=== PATIENT | male | born 1975 | race Two or more races ===

== ENCOUNTER 2017-01-10 13:41 | Emergency (ER) | payer SELFPAY ==
[2017-01-10 13:50] VITALS: BMI 27.8
--- NOTE | 2017-01-10 13:58 | PDOC ---
History of Present Illness - General Chief Complaint: Chest Pain Stated Complaint: CHEST PAIN, LT SIDE NUMBNESS Time Seen by Provider: 01/10/17 13:57 History Source: Patient Exam Limitations: No Limitations - History of Present Illness Initial Comments: CHIEF COMPLAINT: 41 y/o afebrile male with PMH CAD (multiple stents) c/o chest pain today. HISTORY OF PRESENT ILLNESS: The patient states he woke up today with squeezing type of pain in his epigastric and substernal region. He states he was dealing with the pain until a few hours ago when it traveled to the left side of his chest and left shoulder. He then took 81mg of aspirin and came here. He states the pain has improved since taking aspirin. He does admit that he has not seen a doctor in 2 years. He did have a community support professional because he needed "3 or 4" stents placed about 4 years ago. He states after the stents were put in he was put on a blood thinner and some other medications but he decided to stop them on his own 2 years ago. The patient states this pain is similar to the pain he had prior to needing stents. He denies f/c, n/v/d, dizziness, jaw pain , pain in between shoulder blades, cough, hemoptysis, SOB, back pain. The patient is a 2 ppd smoker x 22 years. No PCP Roller Inspector Dr. Sanabria in [facility] (hasn't seen in 2 years) Vital signs on arrival are notable for pulse of 94. REVIEW OF SYSTEMS: GENERAL/CONSTITUTIONAL: No fever/chills. No weakness. No weight change. HEAD, EYES, EARS, NOSE AND THROAT: No change in vision. No ear pain or discharge. No sore throat. CARDIOVASCULAR: +substernal, left sided chest pain. No shortness of breath. RESPIRATORY: No cough, wheezing, or hemoptysis. GASTROINTESTINAL: +epigastric pain. No nausea, vomiting, diarrhea. GENITOURINARY: No dysuria, frequency, or change in urination. MUSCULOSKELETAL: +left shoulder pain. No neck or back pain. SKIN: No rash or easy bruising. NEUROLOGIC: No headache, vertigo, loss of consciousness, or loss of sensation. PHYSICAL EXAM: GENERAL: The patient is awake, alert, and fully oriented, in no acute distress. He is well appearing, ambulatory, in NAD or obvious discomfort. He is not cool, pale or diaphoretic. HEAD: Normal with no signs of trauma. ENT: Pupils equal, round and reactive to light, extraocular movements intact, sclera anicteric, conjunctiva clear. Neck supple. LUNGS: Clear to auscultation bilaterally. Normal excursion. No respiratory distress or use of accessory muscles. CV: RRR, S1/S2, no MRG. Cap refill < 2 sec. ABDOMEN: Soft, non-distended, pain with palpation of epigastric region. No rebound, guarding or rigidity. EXTREMITIES: Normal range of motion, no edema. NEUROLOGICAL: Normal speech, normal gait. CN II-XII grossly intact. PSYCH: Normal mood, normal affect. SKIN: Warm, dry, normal turgor, no rashes or lesions noted. Past History - Past Medical History Allergies/Adverse Reactions: Allergies Allergy/AdvReac Type Severity Reaction Status Date / Time No Known Allergies Allergy Verified 01/10/17 13:46 Home Medications: Ambulatory Orders Aspirin [ASA -] 81 mg PO DAILY 01/10/17 HTN: Yes (not on meds) - Surgical History Cardiac Surgery: Yes (2 stents) - Immunization History Immunization Up to Date: Yes - Psycho/Social/Smoking Cessation Hx Suicidal Ideation: No Smoking History: Current every day smoker Number of Cigarettes Smoked Daily: 40 Information on smoking cessation initiated: No Hx Alcohol Use: No Drug/Substance Use Hx: No Cardiac Specific PMH - Complaint Specific PMHX Myocardial Infarction: Yes *Physical Exam - Vital Signs Last Vital Signs Temp Pulse Resp BP Pulse Ox 98.0 F 81 17 128/81 98 01/10/17 13:47 01/10/17 16:45 01/10/17 16:45 01/10/17 16:46 01/10/17 16:45 Heart Score/ECG Review - ECG Intrepretation Comment:: Twelve-lead EKG was performed and reviewed by Dr. Love. There is normal sinus rhythm with a normal rate. The axis is normal. The intervals are normal. Anteroseptal infarct, age undetermined Impression: Abnormal twelve-lead EKG ED Treatment Course - LABORATORY CBC & Chemistry Diagram: 01/10/17 14:26 01/10/17 14:26 - ADDITIONAL ORDERS Additional order review: Laboratory Results 01/10/17 01/10/17 01/10/17 15:50 14:26 14:26 Sodium 140 Potassium 5.0 Chloride 107 Carbon Dioxide 29 Anion Gap 4 L BUN 14 Creatinine 0.9 Creat Clearance w eGFR > 60 Random Glucose 94 Calcium 8.7 Magnesium 2.1 Total Bilirubin 0.4 AST 28 ALT 25 Alkaline Phosphatase 92 Creatine Kinase 295 Creatine Kinase Index 8.9 H* CK-MB (CK-2) 26.270 H Troponin I 1.79 H* Total Protein 6.4 Albumin 3.5 Urine Color Ltyellow Urine Appearance Clear Urine pH 6.0 Urine Protein Negative Urine Glucose (UA) Negative Urine Ketones Negative Urine Blood Negative Urine Nitrite Negative Urine Bilirubin Negative Urine Urobilinogen Negative Ur Leukocyte Esterase Negative Blood Type A POSITIVE Antibody Screen Negative 01/10/17 14:26 RBC 5.50 MCV 86.3 MCHC 33.7 RDW 13.5 MPV 8.9 Neutrophils % 60.2 Lymphocytes % 25.1 Monocytes % 10.4 H Eosinophils % 3.5 Basophils % 0.8 - RADIOLOGY Radiology Studies Ordered: Category Date Time Status CHEST X-RAY PORTABLE* [RAD] Stat Radiology 01/10/17 16:09 Completed - Medications Given in the ED: ED Medications Discontinued Medications Generic Name Dose Route Start Last Admin Trade Name Freq PRN Reason Stop Dose Admin Aspirin 162 mg 01/10/17 14:12 01/10/17 15:05 Asa - PO 01/10/17 14:13 162 mg ONCE ONE Administration Atorvastatin Calcium 80 mg 01/10/17 15:44 01/10/17 16:04 Lipitor - PO 01/10/17 15:45 80 mg ONCE ONE Administration Clopidogrel Bisulfate 300 mg 01/10/17 15:44 01/10/17 16:04 Plavix - PO 01/10/17 15:45 300 mg ONCE ONE Administration Nitroglycerin 0.3 mg 01/10/17 15:44 01/10/17 16:04 Nitrostat - SL 01/10/17 15:45 0.3 mg ONCE ONE Administration Medical Decision Making - Medical Decision Making A/P: 41 y/o male with substernal chest pain radiating to left arm since this morning. The patient stopped all medication 2 years ago, has 4 stents and has been smoking for 22 years. He has not had medical follow up for 2 years. Plan is to work up for ACS. 1. Labs 2. EKG 3. CXR 4. PO Aspirin Elevated troponin of 1.79. Plavix, Lipitor, Nitro and Heparin were ordered Cardiology called The patient and his were informed of the diagnosis of NSTEMI and the plan for admission/transfer. The patient states at this point his chest pain has resolved. He continues asking me to go outside and smoke. Spoke with Dr. Forbes, community support professional, and she states he does not need to be transferred for cath right now. She suggests admission, NPO after midnight and trending of trops. She states there is no contraindication for Nicotine patch so he can have one. 2nd EKG was done and there were some changes noted. Dr. Forbes called back and was sent both EKGs. She asked for a 3rd EKG and came down to the ER to review all three and speak with the patient. Eventually, after speaking with the patient's Roller Inspector, the decision was made to transfer him to [facility] for a possible cath. The patient and his were made aware. *DC/Admit/Observation/Transfer Diagnosis at time of Disposition: NSTEMI (non-ST elevated myocardial infarction), Elevated troponin - Discharge Dispostion Disposition: TRANSFER ACUTE CARE/OTHER HOSP Condition at time of disposition: Stable Admit: No - Transfer to Acute Care Facility Receiving Facility: [facility]
[2017-01-10] MEDS ORDERED: ASPIRIN 81 MG CHEWABLE TABLETS PO ONE (14:12)
[2017-01-10 14:44] LABS: BASOPHIL 0.8 % (0-2.0); EOSINOPHIL 3.5 % (0-4.5); MCH 29.1 pg (25.7-33.7); MCHC 33.7 g/dl (32.0-35.9); MEAN CELL VOLUME 86.3 fl (80-96); MEAN PLT VOLUME 8.9 fl (7.5-11.1); NEUTROPHILS 60.2 % (42.8-82.8); PLATELET COUNT 170 K/MM3 (134-434); RDW 13.5 % (11.9-15.9); WHITE BLOOD COUNT 9.2 K/mm3 (4.0-10.0)
[2017-01-10] MEDS ORDERED: ASPIRIN 81 MG CHEWABLE TABLETS ONE (15:04)
[2017-01-10 15:22] LABS: ALBUMIN 3.5 g/dl (3.4-5.0); ANION GAP 4 (8-16); BILIRUBIN,TOTAL 0.4 mg/dL (0.2-1.0); CALCIUM 8.7 mg/dL (8.5-10.1); CO2 29 mmol/L (21-32); CREATININE 0.9 mg/dL (0.7-1.3); GLUCOSE,RANDOM 94 mg/dL (74-106); MAGNESIUM 2.1 mg/dL (1.8-2.4); SGOT/AST 28 U/L (15-37); SGPT/ALT 25 U/L (12-78); TOT PROT 6.4 g/dl (6.4-8.2)
[2017-01-10 15:36] LABS: ALK PHOS 92 U/L (45-117); CPK 295 IU/L (39-308)
[2017-01-10 15:40] LABS: TROPONIN I 1.79 ng/ml (0.00-0.05)
[2017-01-10] MEDS ORDERED: NITROGLYCERIN SUBLINGUAL 1/200 0.3 MG BTL SL ONE (15:44)
[2017-01-10] MEDS ORDERED: CLOPIDOGREL BISULFATE 300 MG TABLET PO ONE (15:44)
[2017-01-10] MEDS ORDERED: ATORVASTATIN CA 80 MG TABLET (FP) PO ONE (15:44)
[2017-01-10] MEDS ORDERED: HEPARIN NA (PORCINE) 5,000 UNITS/ML 1ML VIAL IVPUSH PRN ×3 (15:46)
[2017-01-10] MEDS ORDERED: ATORVASTATIN CA 80 MG TABLET (FP) ONE (15:50)
[2017-01-10] MEDS ORDERED: CLOPIDOGREL BISULFATE 300 MG TABLET ONE (15:50)
[2017-01-10] MEDS ORDERED: HEPARIN - 25,000 UNIT in SODIUM CHLORIDE 495 ML IV SCH (16:00)
[2017-01-10 16:16] LABS: URINE APPEARANCE CLEAR; URINE BILIRUBIN NEGATIVE (NEGATIVE); URINE BLOOD NEGATIVE (NEGATIVE); URINE COLOR LTYELLOW; URINE GLUCOSE (UA) NEGATIVE (NEGATIVE); URINE KETONE NEGATIVE (NEGATIVE); URINE LEUK ESTERASE NEGATIVE (NEGATIVE); URINE NITRITE NEGATIVE (NEGATIVE); URINE PROTEIN NEGATIVE (NEGATIVE); URINE UROBILINOGEN NEGATIVE mg/dL (0.2-1.0)
--- NOTE | 2017-01-10 16:16 | EKG ---
Test Reason : Blood Pressure : / mmHG Vent. Rate : 076 BPM Atrial Rate : 076 BPM P-R Int : 132 ms QRS Dur : 080 ms QT Int : 362 ms P-R-T Axes : 044 -12 049 degrees QTc Int : 407 ms NORMAL SINUS RHYTHM ANTEROSEPTAL INFARCT , AGE UNDETERMINED ABNORMAL ECG NO PREVIOUS ECGS AVAILABLE Confirmed by TWIN LECHUGA MD ([id number]) on 01/10/2017 4:15:54 PM Referred By: Confirmed By:TWIN LECHUGA MD
[2017-01-10] MEDS ORDERED: HEPARIN INFUSION - 500 ML IVPB ONE (16:29)
[2017-01-10] MEDS ORDERED: NICOTINE 21 MG/24 HOURS TOPICAL PATCH TD SCH (16:45)
--- NOTE | 2017-01-10 17:17 | HP ---
CHIEF COMPLAINT: PCP: HISTORY OF PRESENT ILLNESS: ER course was notable for: (1) (2) (3) Recent Travel: PAST MEDICAL HISTORY: PAST SURGICAL HISTORY: Social History: Smoking: Alcohol: Drugs: Family History: Allergies No Known Allergies Allergy (Verified 01/10/17 13:46) HOME MEDICATIONS: Home Medications Medication Instructions Recorded Aspirin [ASA -] 81 mg PO DAILY 01/10/17 REVIEW OF SYSTEMS CONSTITUTIONAL: Absent: fever, chills, diaphoresis, generalized weakness, malaise, loss of appetite, weight change HEENT: Absent: rhinorrhea, nasal congestion, throat pain, throat swelling, difficulty swallowing, mouth swelling, ear pain, eye pain, visual changes CARDIOVASCULAR: Absent: chest pain, syncope, palpitations, irregular heart rate, lightheadedness , peripheral edema RESPIRATORY: Absent: cough, shortness of breath, dyspnea with exertion, orthopnea, wheezing, stridor, hemoptysis GASTROINTESTINAL: Absent: abdominal pain, abdominal distension, nausea, vomiting, diarrhea, constipation, melena, hematochezia GENITOURINARY: Absent: dysuria, frequency, urgency, hesitancy, hematuria, flank pain, genital pain MUSCULOSKELETAL: Absent: myalgia, arthralgia, joint swelling, back pain, neck pain SKIN: Absent: rash, itching, pallor HEMATOLOGIC/IMMUNOLOGIC: Absent: easy bleeding, easy bruising, lymphadenopathy, frequent infections ENDOCRINE: Absent: unexplained weight gain, unexplained weight loss, heat intolerance, cold intolerance NEUROLOGIC: Absent: headache, focal weakness or paresthesias, dizziness, unsteady gait, seizure, mental status changes, bladder or bowel incontinence PSYCHIATRIC: Absent: anxiety, depression, suicidal or homicidal ideation, hallucinations. PHYSICAL EXAMINATION Vital Signs - 24 hr 01/10/17 01/10/17 01/10/17 13:47 14:44 16:45 Temperature 98.0 F Pulse Rate 94 H Pulse Rate [ 81 Apical] Respiratory 20 17 Rate Blood Pressure 151/99 Blood Pressure 128/75 [Right Arm] O2 Sat by Pulse 100 97 98 Oximetry (%) 01/10/17 16:46 Temperature Pulse Rate Pulse Rate [ Apical] Respiratory Rate Blood Pressure 128/81 Blood Pressure [Right Arm] O2 Sat by Pulse Oximetry (%) GENERAL: Awake, alert, and fully oriented, in no acute distress. HEAD: Normal with no signs of trauma. EYES: Pupils equal, round and reactive to light, extraocular movements intact, sclera anicteric, conjunctiva clear. No lid lag. EARS, NOSE, THROAT: Ears normal, nares patent, oropharynx clear without exudates. Moist mucous membranes. NECK: Normal range of motion, supple without lymphadenopathy, JVD, or masses. LUNGS: Breath sounds equal, clear to auscultation bilaterally. No wheezes, and no crackles. No accessory muscle use. HEART: Regular rate and rhythm, normal S1 and S2 without murmur, rub or gallop. ABDOMEN: Soft, nontender, not distended, normoactive bowel sounds, no guarding, no rebound, no masses. No hepatomegaly or splenomegaly. MUSCULOSKELETAL: Normal range of motion at all joints. No bony deformities or tenderness. No CVA tenderness. UPPER EXTREMITIES: 2+ pulses, warm, well-perfused. No cyanosis. No clubbing. No peripheral edema. LOWER EXTREMITIES: 2+ pulses, warm, well-perfused. No calf tenderness. No peripheral edema. NEUROLOGICAL: Cranial nerves II-XII intact. Normal speech. Normal gait. PSYCHIATRIC: Cooperative. Good eye contact. Appropriate mood and affect. SKIN: Warm, dry, normal turgor, no rashes or lesions noted, normal capillary refill. Laboratory Results - last 24 hr 01/10/17 01/10/17 01/10/17 14:26 14:26 14:26 WBC 9.2 RBC 5.50 Hgb 16.0 Hct 47.4 MCV 86.3 MCH 29.1 MCHC 33.7 RDW 13.5 Plt Count 170 MPV 8.9 Neutrophils % 60.2 Lymphocytes % 25.1 Monocytes % 10.4 H Eosinophils % 3.5 Basophils % 0.8 Sodium 140 Potassium 5.0 Chloride 107 Carbon Dioxide 29 Anion Gap 4 L BUN 14 Creatinine 0.9 Creat Clearance w eGFR > 60 Random Glucose 94 Calcium 8.7 Magnesium 2.1 Total Bilirubin 0.4 AST 28 ALT 25 Alkaline Phosphatase 92 Creatine Kinase 295 Creatine Kinase Index 8.9 H* CK-MB (CK-2) 26.270 H Troponin I 1.79 H* Total Protein 6.4 Albumin 3.5 Urine Color Urine Appearance Urine pH Urine Protein Urine Glucose (UA) Urine Ketones Urine Blood Urine Nitrite Urine Bilirubin Urine Urobilinogen Ur Leukocyte Esterase Blood Type A POSITIVE Antibody Screen Negative 01/10/17 15:50 WBC RBC Hgb Hct MCV MCH MCHC RDW Plt Count MPV Neutrophils % Lymphocytes % Monocytes % Eosinophils % Basophils % Sodium Potassium Chloride Carbon Dioxide Anion Gap BUN Creatinine Creat Clearance w eGFR Random Glucose Calcium Magnesium Total Bilirubin AST ALT Alkaline Phosphatase Creatine Kinase Creatine Kinase Index CK-MB (CK-2) Troponin I Total Protein Albumin Urine Color Ltyellow Urine Appearance Clear Urine pH 6.0 Urine Protein Negative Urine Glucose (UA) Negative Urine Ketones Negative Urine Blood Negative Urine Nitrite Negative Urine Bilirubin Negative Urine Urobilinogen Negative Ur Leukocyte Esterase Negative Blood Type Antibody Screen ASSESSMENT/PLAN:
--- NOTE | 2017-01-10 18:19 | PDOC ---
*Physical Exam - Vital Signs Last Vital Signs Temp Pulse Resp BP Pulse Ox 98.0 F 81 17 128/81 98 01/10/17 13:47 01/10/17 16:45 01/10/17 16:45 01/10/17 16:46 01/10/17 16:45 ED Treatment Course - LABORATORY CBC & Chemistry Diagram: 01/10/17 14:26 01/10/17 14:26 - ADDITIONAL ORDERS Additional order review: Laboratory Results 01/10/17 01/10/17 01/10/17 15:50 14:26 14:26 Sodium 140 Potassium 5.0 Chloride 107 Carbon Dioxide 29 Anion Gap 4 L BUN 14 Creatinine 0.9 Creat Clearance w eGFR > 60 Random Glucose 94 Calcium 8.7 Magnesium 2.1 Total Bilirubin 0.4 AST 28 ALT 25 Alkaline Phosphatase 92 Creatine Kinase 295 Creatine Kinase Index 8.9 H* CK-MB (CK-2) 26.270 H Troponin I 1.79 H* Total Protein 6.4 Albumin 3.5 Urine Color Ltyellow Urine Appearance Clear Urine pH 6.0 Urine Protein Negative Urine Glucose (UA) Negative Urine Ketones Negative Urine Blood Negative Urine Nitrite Negative Urine Bilirubin Negative Urine Urobilinogen Negative Ur Leukocyte Esterase Negative Blood Type A POSITIVE Antibody Screen Negative 01/10/17 14:26 RBC 5.50 MCV 86.3 MCHC 33.7 RDW 13.5 MPV 8.9 Neutrophils % 60.2 Lymphocytes % 25.1 Monocytes % 10.4 H Eosinophils % 3.5 Basophils % 0.8 - Medications Given in the ED: ED Medications Discontinued Medications Generic Name Dose Route Start Last Admin Trade Name Gabrielq PRN Reason Stop Dose Admin Aspirin 162 mg 01/10/17 14:12 01/10/17 15:05 Asa - PO 01/10/17 14:13 162 mg ONCE ONE Administration Atorvastatin Calcium 80 mg 01/10/17 15:44 01/10/17 16:04 Lipitor - PO 01/10/17 15:45 80 mg ONCE ONE Administration Clopidogrel Bisulfate 300 mg 01/10/17 15:44 01/10/17 16:04 Plavix - PO 01/10/17 15:45 300 mg ONCE ONE Administration Nitroglycerin 0.3 mg 01/10/17 15:44 01/10/17 16:04 Nitrostat - SL 01/10/17 15:45 0.3 mg ONCE ONE Administration Medical Decision Making - Medical Decision Making 01/10/17 18:14 I have seen and discussed this patient with the nurse practitioner, Yaquelin Hoyt and agree with her history and physical examination. In summary, the patient is a 41 y/o male with h/o HTN, CAD and stents in the past, 2 ppd tobacco user who presents to the ED with c/o CP since 10am this morning. The patient had 10/10 chest pain upon my evaluation. Initial EKG had non-specific ST segment changes and q waves in V2 and V3. The troponin was elevated at 1.7 as was the CK and CK-MB fraction. Repeat EKG showed new q waves in V4 and V5 as well as ? ST elevations in V4-V6. The patient was given Plavix 300mg, ASA, NTG SL x 1, Lipitor 80mg PO and started on a heparin drip after a 5000U bolus. Cardiology was consulted and the case was discussed. Ultimately, the decision was made to transfer this patient to [place] for further evaluation and cardiac catheterization. *DC/Admit/Observation/Transfer Diagnosis at time of Disposition: NSTEMI (non-ST elevated myocardial infarction), Elevated troponin - Discharge Dispostion Disposition: TRANSFER ACUTE CARE/OTHER HOSP Condition at time of disposition: Stable
[2017-01-10] MEDS ORDERED: NITROGLYCERIN 25MG/D5W 250ML 250 ML IVPB ONE (19:12)
[2017-01-10] MEDS ORDERED: NITROGLYCERIN 25MG/D5W 250ML 250 ML IVPB SCH (19:15)
[2017-01-10 19:26] VITALS: TEMP 97.8
[2017-01-10 19:32] VITALS: BP 156/84; PULSE 67
--- NOTE | 2017-01-10 21:25 | CON.CARD ---
Cardiology Consult (text) - Consultation Consultation Note: Ambulatory Orders Aspirin [ASA -] 81 mg PO DAILY 01/10/17 Vital Signs - 24 hr 01/10/17 01/10/17 01/10/17 13:47 14:44 16:45 Temperature 98.0 F Pulse Rate 94 H Pulse Rate [ 81 Apical] Respiratory 20 17 Rate Blood Pressure 151/99 Blood Pressure 128/75 [Right Arm] O2 Sat by Pulse 100 97 98 Oximetry (%) 01/10/17 01/10/17 01/10/17 16:46 19:25 19:31 Temperature 97.8 F 97.8 F Pulse Rate 64 Pulse Rate [ 67 Apical] Respiratory 17 17 Rate Blood Pressure 128/81 154/83 Blood Pressure 156/84 [Right Arm] O2 Sat by Pulse 99 Oximetry (%) Intake & Output 01/08/17 01/09/17 01/10/17 01/11/17 07:59 07:59 07:59 07:59 Weight 200 lb CBC, BMP 01/10/17 14:26 01/10/17 14:26
--- NOTE | 2017-01-11 12:30 | EKG ---
Test Reason : Blood Pressure : / mmHG Vent. Rate : 080 BPM Atrial Rate : 080 BPM P-R Int : 140 ms QRS Dur : 084 ms QT Int : 364 ms P-R-T Axes : 058 -27 046 degrees QTc Int : 419 ms NORMAL SINUS RHYTHM ANTEROSEPTAL INFARCT (CITED ON OR BEFORE 10-JAN-2017) ABNORMAL ECG Confirmed by MD LYN, SARAH ([id number]) on 01/11/2017 12:30:27 PM Referred By: Confirmed By:SARAH NICHOLSON MD
--- NOTE | 2017-01-11 12:30 | EKG ---
Test Reason : Blood Pressure : / mmHG Vent. Rate : 080 BPM Atrial Rate : 080 BPM P-R Int : 138 ms QRS Dur : 078 ms QT Int : 354 ms P-R-T Axes : 069 -18 044 degrees QTc Int : 408 ms NORMAL SINUS RHYTHM ANTEROSEPTAL INFARCT (CITED ON OR BEFORE 10-JAN-2017) ABNORMAL ECG Confirmed by MD LYN, SARAH ([id number]) on 01/11/2017 12:29:45 PM Referred By: Confirmed By:SARAH NICHOLSON MD
== END 2017-01-10 19:42 | disposition short-term general hospital (02) ==
LOC: JER 13:41
PROC: 3E033GC Introduction of Other Therapeutic Substance into Peripheral Vein, Percutaneous Approach (ICD-10-PCS; principal; 2017-01-10)
DX: I21.4 Non-ST elevation (NSTEMI) myocardial infarction (principal); F17.210 Nicotine dependence, cigarettes, uncomplicated; I10 Essential (primary) hypertension; Z95.5 Presence of coronary angioplasty implant and graft
CPT/HCPCS: 36415; 71010-TC; 80053; 81003; 82553; 83735; 84484; 85025; 85610; 85730; 86850; 86900; 86901; 93005; 93010; 99285-25; J1644

== ENCOUNTER 2017-02-13 18:59 | Emergency (ER) | payer SELFPAY ==
[2017-02-13 19:03] VITALS: BP 160/105; PULSE 122; TEMP 99.1; BMI 27.8
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
[2017-02-13] MEDS ORDERED: KETOROLAC TROMETHAMINE 60 MG/2 ML VIAL IM ONE (19:50)
[2017-02-13] MEDS ORDERED: KETOROLAC TROMETHAMINE 60 MG/2 ML VIAL ONE (19:51)
== END 2017-02-13 20:52 | disposition home or self-care (01) ==
LOC: JERFT 18:59
PROC: 3E0233Z Introduction of Anti-inflammatory into Muscle, Percutaneous Approach (ICD-10-PCS; principal; 2017-02-13)
DX: S39.012A Strain of muscle, fascia and tendon of lower back, initial encounter (principal); V53.5XXA Driver of pick-up truck or van injured in collision with car, pick-up truck or van in traffic accident, initial encounter; Y92.488 Other paved roadways as the place of occurrence of the external cause; Y93.89 Activity, other specified; I25.2 Old myocardial infarction; I10 Essential (primary) hypertension; F17.210 Nicotine dependence, cigarettes, uncomplicated; Z95.5 Presence of coronary angioplasty implant and graft
CPT/HCPCS: 72100-TC; 99281-25

== ENCOUNTER 2020-08-13 10:30 | Emergency (ER) | payer OTHER ==
[2020-08-13 10:40] VITALS: BMI 27.8
[2020-08-13] MEDS ORDERED: ASPIRIN 81 MG CHEWABLE TABLETS PO ONE (11:22)
[2020-08-13] MEDS ORDERED: ASPIRIN 81 MG CHEWABLE TABLETS ONE (11:42)
[2020-08-13 11:51] LABS: BASO % 0.6 % (0-2.0); EOS % 6.1 % (0-4.5); HEMATOCRIT 47.7 % (35.4-49); HEMOGLOBIN 15.9 GM/dL (11.7-16.9); LYMPH % 36.8 % (8-40); MCH 29.4 pg (25.7-33.7); MCHC 33.3 g/dl (32.0-35.9); MEAN CELL VOLUME 88.2 fl (80-96); MEAN PLT VOLUME 10.2 fl (7.5-11.1); MONO % 12.3 % (3.8-10.2); NEUT % 44.2 % (42.8-82.8); PLATELET COUNT 174 K/MM3 (134-434); RBC 5.41 M/mm3 (4.00-5.60); RDW 13.9 % (11.9-15.9); WHITE BLOOD COUNT 8.5 K/mm3 (4.0-10.0)
[2020-08-13 12:26] LABS: CHLORIDE 109 mmol/L (98-107); POTASSIUM 4.6 mmol/L (3.5-5.1); SODIUM 143 mmol/L (136-145)
[2020-08-13 12:30] LABS: ALBUMIN 3.6 g/dl (3.4-5.0)
[2020-08-13 12:31] LABS: ANION GAP 6 MMOL/L (8-16); BLOOD UREA NITROGEN 18.2 mg/dL (7-18); CALCIUM 8.9 mg/dL (8.5-10.1); CO2 28 mmol/L (21-32); GLUCOSE,RANDOM 102 mg/dL (74-106); MAGNESIUM 2.2 mg/dL (1.8-2.4)
[2020-08-13 12:33] LABS: CREATININE 1.1 mg/dL (0.55-1.3); SGOT/AST 19 U/L (15-37); SGPT/ALT 21 U/L (13-61)
[2020-08-13 12:34] LABS: BILIRUBIN,TOTAL 0.2 mg/dL (0.2-1); TOT PROT 6.7 g/dl (6.4-8.2)
[2020-08-13 12:35] LABS: ALK PHOS 110 U/L (45-117)
[2020-08-13 15:54] VITALS: TEMP 98.3
[2020-08-13 17:03] VITALS: BP 144/88; PULSE 80
[2020-08-14] MEDS ORDERED: NICOTINE 7 MG/24 HOURS TOPICAL PATCH TD ONE (10:00)
== END 2020-08-13 17:07 | disposition short-term general hospital (02) ==
LOC: JER 10:30
DX: R07.9 Chest pain, unspecified (principal); R06.09 Other forms of dyspnea
CPT/HCPCS: 36415; 71045-TC-FY; 80053; 82550; 83735; 83880; 84100; 84484; 85025; 93005; 93010; 99285-25; C9803; U0003; U0005